=== PATIENT | male | born 1960 | race African-American/Black ===

== ENCOUNTER 2021-04-10 12:31 | Inpatient (IN) | payer BC, MEDICARE ==
[~2021-04-10] VITALS: Ht 188 cm; Wt 80.7 kg
[2021-04-10 14:02] LABS: HEMOGLOBIN. 14.5 g/dL (14.0-18.0); MEAN CORPUSCULAR HEMOGLOBIN 26.3 pg (28.0-32.0); MEAN CORPUSCULAR VOLUME 79.9 fL (80.0-94.0); PLATELET 330 x1000/uL (130-400); RED BLOOD CELL COUNT 5.51 mill/uL (4.7-6.1); RED CELL DISTRIBUTION WIDTH 13.9 % (11.6-14.6)
[2021-04-10 14:07] LABS: CHLORIDE 96 mEq/L (98-107)
[2021-04-10 14:23] LABS: PLATELET ESTIMATE NORMAL
[2021-04-10] MEDS ORDERED: VANCOMYCIN 1 G PREMIX 200 ML IV SCH (15:00)
[2021-04-10] MEDS ORDERED: CEFTRIAXONE 1 G PREMIX 50 ML IV ONE (15:00)
[2021-04-10] MEDS ORDERED: FUROSEMIDE 20MG/2ML VIAL IVP ONE (17:15)
[2021-04-10] MEDS ORDERED: HYDROCODONE/APAP 7.5/325MG 1 TAB TABLET PO ONE (17:15)
[2021-04-10] MEDS ORDERED: GUAIFENESIN 200MG/10ML SUGAR FREE UDC PO PRN (21:00)
[2021-04-10] MEDS ORDERED: HYDROMORPHONE HCL/PF 2MG/ML CPJ IV PRN (21:00)
[2021-04-10] MEDS ORDERED: MAGNESIUM/ALUMINUM HYDROXIDE/SIMETHICONE 30ML UDC PO PRN (21:00)
[2021-04-10] MEDS ORDERED: CLONIDINE 0.1MG TABLET PO PRN (21:00)
[2021-04-10] MEDS: AMLODIPINE 10MG TABLET PO SCH (21:00)
[2021-04-10] MEDS ORDERED: ACETAMINOPHEN 325MG TABLET PO PRN (21:00)
[2021-04-10] MEDS ORDERED: ONDANSETRON HCL 4MG/2ML INJ IV PRN (21:00)
[2021-04-10] MEDS ORDERED: NALOXONE HCL 0.4MG/ML VIAL IV PRN (21:30)
[2021-04-10] MEDS: PIPERACILLIN/TAZ 3.375G PREMIX 50 ML IV SCH (21:47)
[2021-04-10] MEDS: ENOXAPARIN 30MG/0.3ML SYR SUBCUT SCH (21:48)
[2021-04-10] MEDS: VANCOMYCIN 1 G PREMIX 200 ML IV SCH (22:59)
[2021-04-11] MEDS: PIPERACILLIN/TAZ 3.375G PREMIX 50 ML IV SCH (06:24)
[2021-04-11] MEDS: ASPIRIN 81MG EC TABLET PO SCH (08:17)
[2021-04-11] MEDS: FUROSEMIDE 40MG/4ML VIAL IV SCH (08:17)
[2021-04-11] MEDS: AMLODIPINE 10MG TABLET PO SCH (08:17)
[2021-04-11] MEDS: ENOXAPARIN 30MG/0.3ML SYR SUBCUT SCH ×2 (08:18→21:07)
[2021-04-11 09:02] LABS: HEMATOCRIT. 47.5 % (42.0-52.0); HEMOGLOBIN. 15.2 g/dL (14.0-18.0); MEAN CORPUSCULAR HEMOGLOBIN 26.8 pg (28.0-32.0); MEAN CORPUSCULAR VOLUME 83.6 fL (80.0-94.0); PLATELET 262 x1000/uL (130-400); RED BLOOD CELL COUNT 5.69 mill/uL (4.7-6.1); RED CELL DISTRIBUTION WIDTH 14.3 % (11.6-14.6)
[2021-04-11 10:20] LABS: PLATELET ESTIMATE NORMAL
[2021-04-11] MEDS ORDERED: NEBI10TA2 PO (11:54)
[2021-04-11] MEDS ORDERED: HYDR100T26 PO (11:54)
[2021-04-11] MEDS ORDERED: OLME1TAB26 PO (11:54)
[2021-04-11] MEDS ORDERED: FURO40SO4 PO (11:54)
[2021-04-11] MEDS ORDERED: CEPH500C2 PO (11:54)
[2021-04-11] MEDS ORDERED: POTA8CAP20 PO (11:54)
[2021-04-11 12:00] VITALS: BP 122/69
[2021-04-11 12:49] VITALS: BP 122/69
[2021-04-11] MEDS ORDERED: DEXTROSE 50% WATER 50ML SYRINGE IV PRN ×2 (13:00)
[2021-04-11] MEDS ORDERED: TRAMADOL HCL/ACETAMINOPHEN 37.5/325MG TABLET PO PRN (13:00)
[2021-04-11 14:41] LABS: CHLORIDE 97 mEq/L (98-107)
[2021-04-11] MEDS: DOCUSATE SODIUM 250MG CAPSULE PO SCH (14:46)
[2021-04-11] MEDS: INSULIN LISPRO 100 UNITS/ML SUBCUT SCH ×3 (14:46→21:16)
[2021-04-11] MEDS: ISOSORB DINIT/HYDRALAZINE HCL 20/37.5MG TABLET PO SCH ×2 (14:47→21:16)
[2021-04-11] MEDS: NEBIVOLOL HCL 5 MG TABLET PO SCH (14:47)
[2021-04-11] MEDS: TAMSULOSIN HCL 0.4MG SR CAPSULE PO SCH (14:48)
[2021-04-11 14:49] LABS: LDL CHOLESTEROL 109 mg/dL (5-100)
[2021-04-11 14:52] LABS: HDL CHOLESTEROL 33 mg/dL (40-59)
[2021-04-11 16:00] VITALS: BP 106/71
[2021-04-11] MEDS: BLOOD SUGAR DIAGNOSTIC STRIP TEST SCH ×2 (16:41→20:54)
[2021-04-11] MEDS: PIPERACILLIN/TAZOBACTAM 3.375G in DEXT 5% WATER 50ML IV SCH ×2 (16:49→22:57)
[2021-04-11 18:23] LABS: CLARITY URINE CLEAR (CLEAR); COLOR URINE YELLOW (YELLOW); KETONES URINE NEGATIVE (NEGATIVE); LEUKOCYTE ESTERASE URINE NEGATIVE (NEGATIVE); NITRITE URINE NEGATIVE (NEGATIVE); OCCULT BLOOD URINE TRACE (NEGATIVE); PH URINE 5.5 (4.5-8.0); PROTEIN URINE TRACE (NEGATIVE)
[2021-04-11 20:00] VITALS: BP 110/63
[2021-04-11] MEDS: HYDROCODONE/ACETAMINOPHEN 5/325MG TABLET PO PRN (21:07)
[2021-04-11] MEDS: DOCUSATE SODIUM 100MG CAPSULE PO PRN (21:11)
[2021-04-11] MEDS: VANCOMYCIN 1 G PREMIX 200 ML IV SCH (22:57)
[2021-04-11 23:04] VITALS: BP 99/63
[2021-04-12 04:00] VITALS: BP 134/78
[2021-04-12 06:00] LABS: CHLORIDE 97 mEq/L (98-107)
[2021-04-12] MEDS: ISOSORB DINIT/HYDRALAZINE HCL 20/37.5MG TABLET PO SCH ×3 (06:08→22:25)
[2021-04-12] MEDS: PIPERACILLIN/TAZOBACTAM 3.375G in DEXT 5% WATER 50ML IV SCH ×2 (06:08→21:21)
[2021-04-12 06:11] LABS: LDL CHOLESTEROL 91 mg/dL (5-100)
[2021-04-12 06:14] LABS: HDL CHOLESTEROL 31 mg/dL (40-59)
[2021-04-12 07:16] LABS: BASOPHILS % 0.4 % (0.0-2.0); HEMATOCRIT. 39.2 % (42.0-52.0); HEMOGLOBIN. 13.2 g/dL (14.0-18.0); LYMPHOCYTES % 9.4 % (20.0-50.0); MEAN CORPUSCULAR HEMOGLOBIN 26.8 pg (28.0-32.0); MEAN CORPUSCULAR VOLUME 79.3 fL (80.0-94.0); MONOCYTES % 6.3 % (2.0-8.0); NEUTROPHILS % 82.9 % (40.0-76.0); PLATELET 314 x1000/uL (130-400); RED BLOOD CELL COUNT 4.94 mill/uL (4.7-6.1); RED CELL DISTRIBUTION WIDTH 13.7 % (11.6-14.6)
[2021-04-12] MEDS: BLOOD SUGAR DIAGNOSTIC STRIP TEST SCH ×4 (07:20→21:00)
[2021-04-12] MEDS: INSULIN LISPRO 100 UNITS/ML SUBCUT SCH ×4 (07:50→22:25)
[2021-04-12 08:24] VITALS: BP 148/72
[2021-04-12] MEDS: ASPIRIN 81MG EC TABLET PO SCH (09:00)
[2021-04-12] MEDS: DOCUSATE SODIUM 250MG CAPSULE PO SCH (09:00)
[2021-04-12] MEDS: NEBIVOLOL HCL 5 MG TABLET PO SCH (09:00)
[2021-04-12] MEDS: TAMSULOSIN HCL 0.4MG SR CAPSULE PO SCH (09:01)
[2021-04-12] MEDS: ENOXAPARIN 30MG/0.3ML SYR SUBCUT SCH ×2 (09:05→21:21)
[2021-04-12] MEDS ORDERED: POTASSIUM CHLORIDE INJ 40 MEQ in DEXT 5% WATER 500 ML IV ONE (09:15)
[2021-04-12] MEDS ORDERED: POTASSIUM CHLORIDE INJ 60 MEQ in DEXT 5% WATER 250 ML IV ONE (09:30)
[2021-04-12] MEDS ORDERED: POTASSIUM CHLORIDE 20MEQ/PACKET PO NR (09:30)
[2021-04-12] MEDS: HYDROCODONE/ACETAMINOPHEN 5/325MG TABLET PO PRN (10:18)
[2021-04-12] MEDS: FUROSEMIDE 40MG/4ML VIAL IV SCH (10:22)
[2021-04-12] MEDS ORDERED: KCL 20MEQ/100ML PREMIX 100 ML IV SCH ×3 (10:30→14:30)
[2021-04-12] MEDS ORDERED: KCL 20MEQ/100ML PREMIX 100 ML IV ONE (12:00)
[2021-04-12 12:11] VITALS: BP 126/78
[2021-04-12 16:00] VITALS: BP 108/66
[2021-04-12 20:00] VITALS: BP 117/69
[2021-04-12] MEDS: VANCOMYCIN 1 G PREMIX 200 ML IV SCH (21:21)
[2021-04-13] VITALS: BP 137/77
[2021-04-13] MEDS: PIPERACILLIN/TAZOBACTAM 3.375G in DEXT 5% WATER 50ML IV SCH ×4 (02:17→22:20)
[2021-04-13 04:00] VITALS: BP 140/85
[2021-04-13] MEDS: BLOOD SUGAR DIAGNOSTIC STRIP TEST SCH ×4 (06:05→21:00)
[2021-04-13] MEDS: ISOSORB DINIT/HYDRALAZINE HCL 20/37.5MG TABLET PO SCH ×3 (06:05→22:21)
[2021-04-13 06:23] LABS: BASOPHILS % 0.4 % (0.0-2.0); EOSINOPHILS % 1.2 % (0.0-5.0); HEMATOCRIT. 37.5 % (42.0-52.0); HEMOGLOBIN. 12.8 g/dL (14.0-18.0); LYMPHOCYTES % 8.8 % (20.0-50.0); MEAN PLATELET VOLUME 7.7 fl (7.4-10.4); MONOCYTES % 7.2 % (2.0-8.0); NEUTROPHILS % 82.4 % (40.0-76.0); PHOSPHORUS 3.4 mg/dL (2.5-4.9); PLATELET 343 x1000/uL (130-400); RED BLOOD CELL COUNT 4.75 mill/uL (4.7-6.1); RED CELL DISTRIBUTION WIDTH 13.8 % (11.6-14.6)
[2021-04-13] MEDS: INSULIN LISPRO 100 UNITS/ML SUBCUT SCH ×4 (07:01→22:28)
[2021-04-13 08:39] VITALS: BP 144/80
[2021-04-13] MEDS: ASPIRIN 81MG EC TABLET PO SCH (09:52)
[2021-04-13] MEDS: POTASSIUM CHLORIDE 20MEQ TABLET SR PO SCH ×2 (09:52→16:46)
[2021-04-13] MEDS: DOCUSATE SODIUM 250MG CAPSULE PO SCH (09:52)
[2021-04-13] MEDS: NEBIVOLOL HCL 5 MG TABLET PO SCH (09:53)
[2021-04-13] MEDS: TAMSULOSIN HCL 0.4MG SR CAPSULE PO SCH (09:53)
[2021-04-13] MEDS: ENOXAPARIN 30MG/0.3ML SYR SUBCUT SCH ×2 (09:59→22:20)
[2021-04-13] MEDS: FUROSEMIDE 40MG/4ML VIAL IV SCH (10:07)
[2021-04-13 11:24] LABS: BASOPHILS % 0.8 % (0.0-2.0); HEMATOCRIT. 38.2 % (42.0-52.0); LYMPHOCYTES % 9.6 % (20.0-50.0); MEAN CORPUSCULAR HEMOGLOBIN 26.6 pg (28.0-32.0); MEAN CORPUSCULAR VOLUME 78.1 fL (80.0-94.0); MEAN PLATELET VOLUME 8.1 fl (7.4-10.4); MONOCYTES % 5.7 % (2.0-8.0); NEUTROPHILS % 81.9 % (40.0-76.0); PLATELET 384 x1000/uL (130-400); RED BLOOD CELL COUNT 4.88 mill/uL (4.7-6.1); RED CELL DISTRIBUTION WIDTH 13.5 % (11.6-14.6)
[2021-04-13 12:00] VITALS: BP 156/94
[2021-04-13] MEDS: VANCOMYCIN 1 G PREMIX 200 ML IV SCH (13:48)
[2021-04-13 16:28] VITALS: BP 122/62
[2021-04-13] MEDS: HYDROCODONE/ACETAMINOPHEN 5/325MG TABLET PO PRN (17:58)
[2021-04-13 20:00] VITALS: BP 139/80
[2021-04-14] VITALS: BP 145/80
[2021-04-14 04:00] VITALS: BP 170/97
[2021-04-14] MEDS: PIPERACILLIN/TAZOBACTAM 3.375G in DEXT 5% WATER 50ML IV SCH ×3 (06:12→21:40)
[2021-04-14] MEDS: VANCOMYCIN 1 G PREMIX 200 ML IV SCH (06:13)
[2021-04-14] MEDS: ISOSORB DINIT/HYDRALAZINE HCL 20/37.5MG TABLET PO SCH ×3 (06:18→21:41)
[2021-04-14 06:29] LABS: BASOPHILS % 0.5 % (0.0-2.0); EOSINOPHILS % 1.8 % (0.0-5.0); HEMOGLOBIN. 12.6 g/dL (14.0-18.0); LYMPHOCYTES % 15.7 % (20.0-50.0); MEAN CORPUSCULAR HEMOGLOBIN 27.1 pg (28.0-32.0); MEAN CORPUSCULAR VOLUME 79.8 fL (80.0-94.0); MEAN PLATELET VOLUME 7.8 fl (7.4-10.4); MONOCYTES % 9.5 % (2.0-8.0); NEUTROPHILS % 72.5 % (40.0-76.0); PLATELET 371 x1000/uL (130-400); RED BLOOD CELL COUNT 4.64 mill/uL (4.7-6.1); RED CELL DISTRIBUTION WIDTH 13.8 % (11.6-14.6)
[2021-04-14 06:48] LABS: VANCOMYCIN TROUGH 21.5 ug/mL (5.0-10.0)
[2021-04-14] MEDS: BLOOD SUGAR DIAGNOSTIC STRIP TEST SCH ×4 (07:20→21:50)
[2021-04-14] MEDS: INSULIN LISPRO 100 UNITS/ML SUBCUT SCH ×4 (07:50→21:49)
[2021-04-14 08:00] VITALS: BP 157/86
[2021-04-14] MEDS ORDERED: POTASSIUM CHLORIDE 20MEQ TABLET SR PO SCH (09:00)
[2021-04-14] MEDS ORDERED: POTASSIUM CHLORIDE 20MEQ TABLET SR PO NR (09:15)
[2021-04-14] MEDS ORDERED: MAGNESIUM 2 G PREMIX 50 ML IV NR (11:00)
[2021-04-14 11:59] VITALS: BP 154/97
[2021-04-14] MEDS: ASPIRIN 81MG EC TABLET PO SCH (12:07)
[2021-04-14] MEDS: ENOXAPARIN 30MG/0.3ML SYR SUBCUT SCH ×2 (12:07→21:40)
[2021-04-14] MEDS: POTASSIUM CHLORIDE 20MEQ TABLET SR PO SCH ×2 (12:08→18:30)
[2021-04-14] MEDS: TAMSULOSIN HCL 0.4MG SR CAPSULE PO SCH (12:08)
[2021-04-14] MEDS: DOCUSATE SODIUM 100MG CAPSULE PO PRN (12:08)
[2021-04-14] MEDS: MAGNESIUM OXIDE 400MG TABLET PO SCH (12:09)
[2021-04-14] MEDS: LINAGLIPTIN 5MG TABLET PO SCH (12:10)
[2021-04-14] MEDS: FUROSEMIDE 40MG/4ML VIAL IV SCH (12:11)
[2021-04-14] MEDS: NEBIVOLOL HCL 5 MG TABLET PO SCH (12:17)
[2021-04-14] MEDS: DOCUSATE SODIUM 250MG CAPSULE PO SCH (12:17)
[2021-04-14 15:06] VITALS: BP 154/89
[2021-04-14] MEDS: HYDROCODONE/ACETAMINOPHEN 5/325MG TABLET PO PRN (18:35)
[2021-04-14 20:00] VITALS: BP 128/79
[2021-04-14] MEDS: CILOSTAZOL 50 MG TABLET PO SCH (21:53)
[2021-04-14] MEDS ORDERED: PNEUMOCOCCAL 23-VAL P-SAC VAC 0.5 ML IM SCH (22:15)
[2021-04-15] VITALS: BP 169/93
[2021-04-15 04:00] VITALS: BP 133/85
[2021-04-15] MEDS: PIPERACILLIN/TAZOBACTAM 3.375G in DEXT 5% WATER 50ML IV SCH ×2 (06:17→14:10)
[2021-04-15] MEDS: ISOSORB DINIT/HYDRALAZINE HCL 20/37.5MG TABLET PO SCH ×3 (06:18→21:54)
[2021-04-15 06:22] LABS: PROSTRATE SPECIFIC AG TOTAL 4.35 ng/mL (0.0-4.0)
[2021-04-15 06:44] LABS: CARCINO EMBRYONIC ANTIGEN < 0.5 ng/ml
[2021-04-15] MEDS: INSULIN LISPRO 100 UNITS/ML SUBCUT SCH ×4 (07:50→21:56)
[2021-04-15] MEDS: BLOOD SUGAR DIAGNOSTIC STRIP TEST SCH ×4 (08:00→21:52)
[2021-04-15 08:16] LABS: HEMATOCRIT. 37.9 % (42.0-52.0); HEMOGLOBIN. 13.1 g/dL (14.0-18.0); MEAN CORPUSCULAR HEMOGLOBIN 27.3 pg (28.0-32.0); MEAN CORPUSCULAR VOLUME 78.8 fL (80.0-94.0); RED BLOOD CELL COUNT 4.81 mill/uL (4.7-6.1); RED CELL DISTRIBUTION WIDTH 14.2 % (11.6-14.6)
[2021-04-15] MEDS ORDERED: VANCOMYCIN 1 G PREMIX 200 ML IV SCH (09:00)
[2021-04-15 09:11] VITALS: BP 124/76
[2021-04-15] MEDS: POTASSIUM CHLORIDE 20MEQ TABLET SR PO SCH ×2 (09:13→19:01)
[2021-04-15] MEDS: LINAGLIPTIN 5MG TABLET PO SCH (09:13)
[2021-04-15] MEDS: FUROSEMIDE 40MG/4ML VIAL IV SCH (09:13)
[2021-04-15] MEDS: TAMSULOSIN HCL 0.4MG SR CAPSULE PO SCH (09:14)
[2021-04-15] MEDS: ASPIRIN 81MG EC TABLET PO SCH (09:14)
[2021-04-15] MEDS: MAGNESIUM OXIDE 400MG TABLET PO SCH (09:14)
[2021-04-15] MEDS: CILOSTAZOL 50 MG TABLET PO SCH ×2 (09:15→21:53)
[2021-04-15] MEDS: ENOXAPARIN 30MG/0.3ML SYR SUBCUT SCH ×2 (09:21→21:54)
[2021-04-15] MEDS: DOCUSATE SODIUM 250MG CAPSULE PO SCH (09:22)
[2021-04-15] MEDS: NEBIVOLOL HCL 5 MG TABLET PO SCH (09:22)
[2021-04-15 12:00] VITALS: BP 138/76
[2021-04-15] MEDS: HYDROCODONE/ACETAMINOPHEN 5/325MG TABLET PO PRN (12:09)
[2021-04-15 15:20] LABS: PLATELET 408 x1000/uL (130-400)
[2021-04-15 15:28] LABS: PLATELET ESTIMATE SLIGHTLY INCREASED
[2021-04-15 16:59] VITALS: BP 133/78
[2021-04-15 20:00] VITALS: BP 125/76
[2021-04-16] VITALS (7 sets, daily range): BP systolic 124–155; BP diastolic 73–99
[2021-04-16] MEDS: ISOSORB DINIT/HYDRALAZINE HCL 20/37.5MG TABLET PO SCH ×3 (06:49→20:44)
[2021-04-16] MEDS: INSULIN LISPRO 100 UNITS/ML SUBCUT SCH ×4 (07:42→20:46)
[2021-04-16] MEDS: BLOOD SUGAR DIAGNOSTIC STRIP TEST SCH ×4 (07:42→20:42)
[2021-04-16] MEDS: NEBIVOLOL HCL 5 MG TABLET PO SCH (09:42)
[2021-04-16] MEDS: DOCUSATE SODIUM 250MG CAPSULE PO SCH (09:43)
[2021-04-16] MEDS: ASPIRIN 81MG EC TABLET PO SCH (09:44)
[2021-04-16] MEDS: MAGNESIUM OXIDE 400MG TABLET PO SCH (09:44)
[2021-04-16] MEDS: TAMSULOSIN HCL 0.4MG SR CAPSULE PO SCH (09:44)
[2021-04-16] MEDS: CILOSTAZOL 50 MG TABLET PO SCH ×2 (09:44→20:44)
[2021-04-16] MEDS: LINAGLIPTIN 5MG TABLET PO SCH (09:49)
[2021-04-16] MEDS: ENOXAPARIN 30MG/0.3ML SYR SUBCUT SCH ×2 (09:50→20:45)
== END 2021-04-16 21:40 | DRG 871 ==
LOC: ER 12:31 → 6WST 16:55 → ENRESERV 04-11 09:02
PROVIDERS: ADMIT Internal Medicine Geriatric Medicine; ATTEND Internal Medicine Geriatric Medicine
DX: A41.9 Sepsis, unspecified organism (principal); E43 Unspecified severe protein-calorie malnutrition; I50.33 Acute on chronic diastolic (congestive) heart failure; E87.1 Hypo-osmolality and hyponatremia; L03.115 Cellulitis of right lower limb; L03.116 Cellulitis of left lower limb; N17.9 Acute kidney failure, unspecified; I13.0 Hypertensive heart and chronic kidney disease with heart failure and stage 1 through stage 4 chronic kidney disease, or unspecified chronic kidney disease; L97.919 Non-pressure chronic ulcer of unspecified part of right lower leg with unspecified severity; L97.929 Non-pressure chronic ulcer of unspecified part of left lower leg with unspecified severity; E11.22 Type 2 diabetes mellitus with diabetic chronic kidney disease; E11.51 Type 2 diabetes mellitus with diabetic peripheral angiopathy without gangrene; E11.622 Type 2 diabetes mellitus with other skin ulcer; E87.6 Hypokalemia; K76.89 Other specified diseases of liver; I49.3 Ventricular premature depolarization; I49.1 Atrial premature depolarization; E83.42 Hypomagnesemia; I87.2 Venous insufficiency (chronic) (peripheral); N18.9 Chronic kidney disease, unspecified; N40.0 Benign prostatic hyperplasia without lower urinary tract symptoms; Z82.3 Family history of stroke; Z68.22 Body mass index [BMI] 22.0-22.9, adult; Z90.79 Acquired absence of other genital organ(s); I89.0 Lymphedema, not elsewhere classified; Z20.822 Contact with and (suspected) exposure to COVID-19
CPT/HCPCS: 36415; 71045; 73590; 74176; 76770; 80048; 80053; 80061; 80202; 81003; 82378; 82962; 83036; 83605; 83735; 83880; 84100; 84153; 84484; 85025; 86301; 87426; 90732; 93005; 93306; 93923; 93970; 97162; 97166; 97530; 97535; 99285; J0696; J1650; J1815; J1940; J2543; J3370; J3475; J3480; J7040; J7060; G0103